=== PATIENT | female | born 1980 | race Caucasian/White ===

== ENCOUNTER 2020-01-02 07:13 | Outpatient (CLI) | payer MEDICARE, MEDICAID, SELFPAY ==
--- NOTE | 2020-01-02 | XR_ITS ---
WS: [id number] PROCEDURE: XR chest 2V* [id number] CLINICAL INFORMATION: TUBERCULOSIS SCREENING COMPARISON: March 08, 2019 FINDINGS: Vagal nerve stimulator Heart: Normal cardiac silhouette. Lungs: Lungs are clear. No consolidation or pleural fluid. No acute pulmonary infiltrates. Bones: Thoracolumbar scoliosis. XR/XR chest 2V* [id number] IMPRESSION: 1. Vagal nerve stimulator. 2. Lungs are well aerated. No acute pulmonary infiltrates. 3. Thoracolumbar scoliosis.
== END 2020-01-02 07:14 | disposition home or self-care (01) ==
LOC: RADOUTREAD 01-07 08:01
PROVIDERS: Family Provider Family Medicine; Visit Provider Family Medicine
DX: Z01.89 Encounter for other specified special examinations (principal)

== ENCOUNTER → 2021-05-05 10:43 | Outpatient (BNVA) | payer MEDICARE, MEDICAID, SELFPAY | PROVIDERS: PCP Family Medicine; Visit Provider Nurse Practitioner Family | DX: Z20.822 Contact with and (suspected) exposure to COVID-19 (principal) | CPT/HCPCS: 87635 ==

== ENCOUNTER 2022-10-27 13:10 | Outpatient (CLI) | payer MEDICARE, MEDICAID, SELFPAY ==
--- NOTE | 2022-10-27 13:26 | MM_ITS ---
WS: [id number] BILATERAL DIGITAL SCREENING MAMMOGRAPHY WITH CAD CLINICAL INFORMATION: SCREENING HISTORY: Screening mammogram. No current complaints. COMPARISON: None. TECHNIQUE: Bilateral CC and MLO views. FINDINGS: The breasts are composed of heterogeneous fibroglandular density tissue, which can limit the detectio n of small underlying mass lesions. No suspicious mass, asymmetry, calcifications, or architectural d istortion. No evidence of malignancy. A few incidental punctate calcifications. Partially visualized vagal nerve stimulator. MM/[id number] IMPRESSION: BI-RADS: 2-Benign FOLLOW UP: 1 Year Follow-up Recommend return to annual screening mammography.
== END 2022-10-27 13:11 | disposition home or self-care (01) ==
LOC: RAD 13:10
PROVIDERS: PCP Family Medicine; Visit Provider Family Medicine
DX: Z12.31 Encounter for screening mammogram for malignant neoplasm of breast (principal)
CPT/HCPCS: 77067

== ENCOUNTER 2023-10-30 11:30 | Outpatient (CLI) | payer MEDICARE, MEDICAID, SELFPAY ==
--- NOTE | 2023-10-30 11:34 | MM_ITS ---
WS: [id number] BILATERAL SCREENING DIGITAL MAMMOGRAM WITH CAD HISTORY: SCREENING COMPARISON: None available. Bilateral CC and MLO mammography submitted. Computer aided detection analyzed. Breast composition: The breasts are heterogeneously dense, which may obscure small masses. No suspici ous masses, microcalcifications or architectural distortion. There are a few benign calcifications wh ich are stable Vagal nerve stimulator partially visualized LEFT upper thorax. IMPRESSION: MM/[place] [id number] BI-RADS: 2-Benign FOLLOW UP: 1 Year Follow-up
== END 2023-10-30 11:31 | disposition home or self-care (01) ==
LOC: RAD 11:31
PROVIDERS: PCP Family Medicine; Visit Provider Family Medicine
DX: Z12.31 Encounter for screening mammogram for malignant neoplasm of breast (principal)
CPT/HCPCS: 77067

== ENCOUNTER 2024-04-25 20:43 | Emergency (ER) | payer MEDICARE, MEDICAID, SELFPAY ==
[2024-04-25 20:44] VITALS: BP 120/87; PULSE 84; RESP 16; TEMP 37.4; O2SAT 100
--- NOTE | 2024-04-25 20:52 | XRR_ITS ---
PROCEDURE INFORMATION: Exam: XR Chest Exam date and time: 04/25/2024 9:14 PM Age: 43 years old Clinical indication: Pain; Other: Choking; Additional info: Choking, choked on piece of watermelon, received the heimlich and is non distressed now TECHNIQUE: Imaging protocol: Radiologic exam of the chest. Views: 1 view. COMPARISON: CR XR chest 2V* [id number] 04/07/2022 1:12 PM FINDINGS: Tubes, catheters and devices: Left neck stimulator device. Lungs: Small area of left lung base atelectasis or airspace disease. Right lung clear. Pleural spaces: Unremarkable. No pleural effusion. No pneumothorax. Heart/Mediastinum: Unremarkable. No cardiomegaly. Bones/joints: Unremarkable. XR/XR chest 1V portable [id number] IMPRESSION: Small area of potential left lung base atelectasis or airspace disease.
--- NOTE | 2024-04-25 21:59 | ED_ITS ---
HPI - General Adult General: Chief complaint: General Medical Stated complaint: Throat injury Time Seen by Provider: 04/25/24 21:47 Source: patient and other (care staff) Limitations: other (pt is non-verbal, significant intellectual delays) History of Present Illness: Patient is a 43-year-old female who presents to ED today along with care staff from her skilled nursing for evaluation following a choking episode. Patient herself is nonverbal with significant intellectual delay so all of history is from care staff. Essentially approximately 3 hours ago she got a large mouthful of watermelon and staff states her face turned red and her eyes began tearing up. They state that another staff member performed one Heimlich maneuver thrust to expel the watermelon which they did so successfully. Patient has been acting normal since the incident. She has ate and drink since without difficulty. Staff states it is protocol to obtain a CXR following this which is the only reason they are presenting to the ED today. Onset (ago): hour(s) Associated symptoms: Reports no associated symptoms Review of Systems General: Reports: ROS unobtainable due to medical condition and ROS unobtainable due to mental status Physical Exam Const: COMMON NORMALS: no acute distress, average body habitus, alert and well nourished EXAM LIMITATIONS: other limitations (at mental/cognitive baseline) GENERAL APPEARANCE: cooperative Chest: COMMONS NORMALS: normal inspection of the chest and normal palpation of entire chest wall Resp: COMMON NORMALS: normal respiratory effort and clear to auscultation bilaterally AUSCULTATION: clear to auscultation bilaterally Cardio: COMMON NORMALS: regular rate and regular rhythm RATE: regular rate RHYTHM: regular rhythm GI: COMMON NORMALS: Soft to palpation PALPATION: Yes Soft to palpation Neuro: SENSORIUM/ORIENTATION: Yes alert Course Vital Signs: Vital signs: Vital Signs Temperature 99.3 F 04/25/24 20:44 Pulse Rate 84 04/25/24 20:44 Respiratory Rate 16 04/25/24 20:44 Blood Pressure 120/87 04/25/24 20:44 Pulse Oximetry 100 04/25/24 20:44 Oxygen Delivery Me thod Room Air 04/25/24 20:44 MDM - General Adult Medical Decision Making CXR unremarkable. She will be allowed discharge. Return precautions discussed. Medical Records I reviewed the patient's medical records. Lab Data Radiology Impressions Chest X-Ray 04/25/24 20:52 IMPRESSION: Small area of potential left lung base atelectasis or airspace disease. All radiology interpretation(s) finalized by discharge Discharge Plan Discharge Patient Disposition: Home Clinical Impression: Choking episode Condition: Stable Prescriptions: No Action Unable to Assess Discharge Orders: Discharge ED (Routine); Ordered 04/25/24 Ordered By: Nena Hardwick Referrals: Alejandro Hernandez MD [Primary Care Provider] - Coding Level of Care Code ED Portrait Photographer for [facility] Yancey
== END 2024-04-25 22:48 | disposition home or self-care (01) ==
PROVIDERS: Emergency Provider Physician Assistant; PCP Family Medicine
DX: T17.928A Food in respiratory tract, part unspecified causing other injury, initial encounter (principal); W44.F3XA Food entering into or through a natural orifice, initial encounter
CPT/HCPCS: 71045; 99283

== ENCOUNTER 2024-12-09 11:50 | Outpatient (CLI) | payer MEDICARE, MEDICAID, SELFPAY ==
--- NOTE | 2024-12-09 | MM_ITS ---
WS: [id number] VIEWS: MLO and CC views both breasts. Comparison made with prior exam of 10/27/2022 and 10/30/2023.. Findings: The breasts are heterogeneously dense, which may obscure small masses. No sign of suspicious mass, tumor calcification or architectural distortion. MM/[place] [id number] Impression: BI-RADS: 2 - Benign FOLLOW-UP: 1 Year Follow-up This mammogram was also analyzed by the Computer Aided Detection System [employer].
== END 2024-12-09 11:51 | disposition home or self-care (01) ==
PROVIDERS: PCP Family Medicine; Visit Provider Family Medicine
DX: Z12.31 Encounter for screening mammogram for malignant neoplasm of breast (principal); R92.333 Mammographic heterogeneous density, bilateral breasts
CPT/HCPCS: 77067